=== PATIENT | female | born 1980 | race African-American/Black ===

== ENCOUNTER 2018-05-30 18:37 | Emergency (ER) | payer OTHER ==
[~2018-05-30] VITALS: Ht 170.2 cm; Wt 97.5 kg
[2018-05-30 18:44] VITALS: Ht 170.2 cm; Wt 97.5 kg
[2018-05-30 21:06] VITALS: BP 143/78
== END 2018-05-30 20:30 | disposition home or self-care (01) ==
LOC: ED 18:37
DX: L02.811 Cutaneous abscess of head [any part, except face] (principal); K21.9 Gastro-esophageal reflux disease without esophagitis; M79.7 Fibromyalgia; Z88.6 Allergy status to analgesic agent
CPT/HCPCS: J2001